=== PATIENT | female | born 1975 | race Caucasian/White ===

== ENCOUNTER 2020-08-26 10:10 | Day surgery (SDC) | payer OTHER, SELFPAY ==
--- NOTE | 2020-08-23 16:56 | PCM.HP.BLA ---
History and Physical Date of Admission: 08/26/20 HPI: The patient is a 44 year old female presenting for pre-operative visit. She is scheduled for?Laparoscopic bilateral salpingectomy and hysteroscopy w/ endometrial ablation, for?heavy menstrual bleeding and sterilization request on?08/26/2020. ??Procedure discussed along with risks, benefits and complications. ?Other alternatives discussed for management. Consent form signed??Yes.? PAST MEDICAL HISTORY PAST MEDICAL HISTORY Diagnosis Date ? Depression ? ? GERD (gastroesophageal reflux disease) ? ? Kidney stones ? ? Migraines ? ? ? PAST SURGICAL HISTORY PAST SURGICAL HISTORY Procedure Laterality Date ? BACK SURGERY HX ? ? ? 03/2020, 06/2020 ? PAST SURGICAL HISTORY OF ? PAST SURGICAL HISTORY OF ? 1999 ? colonoscopy ? PAST SURGICAL HISTORY OF ? ? ? 04/15/20; 06/23/20 ?-- 2 back surgeries ? REMOVAL GALLBLADDER ? ? ? Cholecystectomy ? REMOVAL OF TONSILS,<12 Y/O ? 1994 ? Tonsillectomy ? ? CURRENT MEDICATIONS Current Outpatient Medications Medication Sig Dispense Refill ? Zolpidem (AMBIEN CR) 12.5 mg CR tablet TAKE 1 TABLET BY MOUTH EVERY DAY AT BEDTIME NEEDED FOR SLEEP ? ? ? Norethindrone, Contraceptive, (ORTHO MICRONOR) 0.35 mg tablet Take 1 tablet by mouth once daily. 3 Package 3 ? PROPRANOLOL HCL (INDERAL XL ORAL) Take ?by mouth once daily. ? ? ? sertraline (ZOLOFT) 100 mg ORAL tablet Take 100 mg by mouth once daily. ? ? ? No current facility-administered medications for this visit. ? ALLERGIES:?Almonds [Other], Cats, and Percocet [Oxycodone-Acetaminophen] ? PERSONAL HISTORY:? SOCIAL HISTORY Social History ? Tobacco Use ? Smoking status: Never Smoker ? Smokeless tobacco: Never Used Substance Use Topics ? Alcohol use: Yes ? ? Comment: Occasionally ? Drug use: No ? FAMILY HISTORY:? FAMILY HISTORY FAMILY HISTORY Problem Relation Age of Onset ? Breast Cancer Paternal Grandmother ? ? Colon Cancer Paternal Grandfather ? ? Prostate Cancer Paternal Grandfather ? ? Allergies Father ? ? Hypertension Father ? ? Hyperlipidemia Father ? ? Allergies Brother ? ? Allergies Mother ? ? Hypertension Mother ? ? other (Endometrosis) Mother ? ? Prostate Cancer Maternal Grandfather ? ? REVIEW OF SYMPTOMS: GENERAL: denies fevers or chills ENDOCRINOLOGY: has not been on steroids Cardiology : denies palpitations or chest pain Respiratory: denies SOB or cough Hematology: denies history of prolonged bleeding or easy bruising or VTE Allergy: Denies history of personal or family history of allergy to anesthesia ? ? PHYSICAL EXAMINATION: ? VITALS:?Last menstrual period 07/27/2020. ? GENERAL:??The patient is well nourished, well hydrated in no acute distress. ?, The patient is oriented to time, place, and person. NECK:?Supple. No lynphadenopathy, normal thyroid, no thyromegaly. LUNGS:?Clear to auscultation bilaterally. no wheezes, rhonchi or rales HEART:?Regular rate and rhythm, Normal heart sounds and No murmurs or gallops ? ? IMPRESSION:?.Sterilization request, endometrial ablation w/ hysteroscopy ? PLAN:???The risks/benefits/alternatives and personal involved for the planned?laparoscopic bilateral salpingectomy with hysteroscopy and endometrial biopsy?were reviewed with the patient. Her questions were answered to her satisfaction and she desires to proceed. ?Consent was signed. ?I reviewed with her postop instructions and expectations. ? ? I have reviewed and updated past medical and surgical history, medications and allergies. This H&P was completed in my office on 08/23/2020. Procedure Criteria Procedure Type: Elective COVID Risk Discussion: The surgeon/proceduralist and patient have discussed in detail the risk of exposure to and/or potential harm posed by the COVID-19 virus with having a surgery/procedure at this time versus the risk of delaying the surgery/procedure. It is not possible to know either the risk of delaying the surgery or procedure or chance of getting an infection with perfect accuracy, but a joint decision was made between the patient and the surgeon/proceduralist to proceed at this time with the scheduled surgery/procedure as indicated on the consent form.
--- NOTE | 2020-08-26 | IMM_PTH ---
PATIENT: ROBBIE COURTNEY LOC: [facility] [place] U#:[id number] AGE/SX: 44/F ROOM: RE08/26/[address]: Dr. Cassie Miller MD : 1975 BED: DIS: 08/26/2020 SPEC #: [id number] RECD: 08/30/20 12:58 STATUS: MAGAN REQ #: [id number] COIRNE: 08/26/20 00:[address]: Cassie Miller DEPT: IMMUNOHISTOCHEMISTRY RECD BY: Wanda Lezama ENTERED: 08/30/20 12:59 SP TYPE: IMMUNO OTHR DR: Georgette Cuevas, CRYPTOGRAPHIC CENTER SPECIALIST-C Tissues: C - Vulva, NOS Procedures: p16 (initial) KI-67 (add) P53 (add) PHYSICIAN & INSTITUTION [place] [id number] SPECIMEN INFORMATION: Tissue Source: C - Vulvar biopsy Clinical Info: Sterilization; heavy menstrual bleeding Specimen Number: [id number] CPT code: 54070, 14649 x2 METHODOLOGY: Deparaffinized sections of prefer/formalin-fixed tissue or PAP/DQ stained slides are incubated with monoclonal/polyclonal antibodies/oligonucleotide probes. Localization is made via biotin free immunoperoxidase method. Appropriate controls are performed and reacted as expected. Results on target cell population are indicated in the following table: RESULTS: ANTIBODY / CLONE RESULT Block C P16 (E6H4) positive, block-like Ki-67 (30-9) positive, high P53 (DO-7) positive These tests were developed and their performance characteristics determined by [facility]. They may not have been cleared or approved by the U.S. Food and Drug Administration. The FDA has determined that such clearance or approval is not necessary. The above immunohistochemical/dualISH markers are ordered and reviewed by the Pathologist. 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 AM:paulie 08/31/20
[2020-08-26] MEDS: Celecoxib 200 MG Capsule 400 MG PO (07:00)
[2020-08-26] MEDS: Scopolamine 1mg/72hr Patch 1 PATCH TD (07:00)
[2020-08-26 10:48] LABS: Hematocrit 37.4 % (37-47); Mean Corp Hgb Conc 34.8 g/dL (32-36); Mean Corpuscular Hgb 32.2 pg (27.0-32.0); Mean Corpuscular Volume 92.6 fL (81-99); Mean Platelet Vol. 9.7 fl (6.2-12.0); Platelet Count 236 K/mm3 (150-450); RBC Distribution Width CV 13.2 % (11.6-14.6); RBC Distribution Width SD 44.1 fl (35.1-43.9); Red Blood Count 4.04 M/mm3 (4.2-5.4); White Blood Count 7.7 K/mm3 (4.4-11.0)
[2020-08-26 10:51] LABS: Internal QC Validated? YES +Cl - CLEAR BKGD; Pregnancy, Urine Negative Negative
[2020-08-26 11:00] LABS: AST(SGOT) 13 U/L (15-37); Alanine Aminotransfer ALT/SGPT 18 U/L (13-56); Albumin, Serum 3.7 g/dL (3.2-5.0); Alkaline Phosphatase 98 U/L (45-117); Globulin 3.7 g/dL (2.2-4.2); International Normalized Ratio 1.1; Partial Thromboplast Time 27.4 Seconds (24.1-36.2); Protein, Total 7.4 g/dL (6.4-8.2); Prothrombin Time (Protime)PT. 13.4 SECONDS (11.7-14.9)
[2020-08-26 11:20] VITALS: BP 126/84; PULSE 57; RESP 16; TEMP 36.8; O2SAT 98; BMI 31.3
[2020-08-26] MEDS: Acetaminophen 500 MG Tablet 1000 MG PO (11:31)
[2020-08-26] MEDS: Lactated Ringers 1,000 ML 100 ML IV (11:34)
--- NOTE | 2020-08-26 11:40 | FALS_PTH ---
PATIENT: ROBBIE COURTNEY LOC: [facility] [place] U#:[id number] AGE/SX: 44/F ROOM: RE08/26/[address]: Dr. Cassie Miller MD : 1975 BED: DIS: 08/26/2020 SPEC #: [id number] RECD: 08/26/20 13:51 STATUS: MAGAN RENiurka #: [id number] CORINE: 08/26/20 11:[address]: Cassie Miller DEPT: SURGICAL PATHOLOGY RECD BY: Patricia Augustine ENTERED: 08/27/20 08:18 SP TYPE: FALL TUBES OTHR DR: Georgette Cuevas, MARTIAL ARTS INSTRUCTOR-C Tissues: A - Fallopian tube B - Endometrium, NOS C - Vulva, NOS Procedures: Surgery Specimen Level II Surgery Specimen Level IV HEADER OPERATION: Laparoscopic salpingectomy, D & C, vulvar biopsy PRE-OP DIAGNOSIS: Sterilization; heavy menstrual bleeding TISSUE SUBMITTED: A - Bilateral fallopian tubes, B - Endometrial curettings, C - Vulvar biopsy, perineum MICROSCOPIC DIAGNOSIS A. Right and left fallopian tubes, bilateral salpingectomies: Two complete segments of fallopian tubes with no pathologic change. B. Endometrium, curettings: Scant fragments of benign superficial, inactive endometrium. Rare fragments of benign endocervix with squamous metaplasia. Scant fragments of benign superficial squamous mucosa. C. Vulva, biopsy: Vulvar intraepithelial neoplasia, HUDSON I-III. See comment. AM:paulie 08/31/20 COMMENT C. HUDSON II focally extends to the peripheral margins of excision. Results from immunohistochemistry ([id number]) for surrogate HPV marker (p16) will be reported separately. Case has been reviewed in consultation with Dr. Barbosa who concurs with the above diagnosis. IDC:SJ MICROSCOPIC DESCRIPTION Slides are reviewed. GROSS DESCRIPTION A - Received in fixative is one container labeled with the patient's name and designated bilateral fallopian tubes. The specimen consists of bilateral fallopian tubes including fimbrial ends measuring 3.5 cm in length and 0.5 cm in diameter and 7 cm in length and 0.5 cm in diameter. The fallopian tubes are not identified as right or left. Sections reveal unremarkable cut surfaces. Mercerizing Range Controller sections are submitted in two cassettes with each cassette containing one fallopian tube. B - Received in fixative is one container labeled with the patient's name and designated endometrial curettings. The specimen consists of multiple fragments of hemorrhagic soft tissue that in aggregate measure 2.5 x 2.5 x 0.2 cm. The specimen is totally submitted in one cassette. C - Received in fixative is one container labeled with the patient's name and designated vulvar biopsy. The specimen consists of a piece of hayes-white mucosal tissue measuring 2 x 1.5 x 0.2 cm. The specimen is inked and submitted entirely in one cassette. It will be sectioned at the time of embedding. / HORACIO:paulie 08/27/20 TC:0 CPT: 53800 x2, 32625 x2
[2020-08-26] MEDS: Bupivacaine Mpf 0.5% 30 ML VIAL (12:42)
[2020-08-26] MEDS: Lactated Ringers 1,000 ML 75 ML IV (13:15)
--- NOTE | 2020-08-26 13:30 | DCINST_ITS ---
Discharge Diet: No Restrictions - Increase fluid intake for the next 48 hours. Discharge Activity: Return to Normal Activity, May Drive - when you are no longer taking pain/narcotic meds., May Shower, May Take a Tub Bath - in 7 days Return to work on:: 08/30/20 May shower in (days): 1 May resume sexual activity in: 2 weeks Additional Activity Instructions:: Ambulate often the next week after surgery. Nothing in the vagina for 5 days. Call your doctor if your incision/area has: Continuous Slow Oozing, Sudden Increased Bleeding, Increased Pain/ Swelling, Increased Redness, Foul Smelling Discharge Call your doctor if you observe: Fever of 101 or Higher Cleanse incision/area with: Soap & Water, - - Your incision on your perineum can be cleaned 2-3 times a day with warm water or soaked in plain warm water Allergies/Adverse Reactions: Allergies acetaminophen [From Percocet] Allergy (Severe, Verified 08/26/20 11:19) UNKNOWN oxycodone [From Percocet] Allergy (Severe, Verified 08/26/20 11:19) UNKNOWN tree nut Allergy (Severe, Verified 08/26/20 11:19) UNKNOWN Medications to take at Discharge propranolol 120 mg capsule,24 hr,extended release 120 mg PO QHS 08/20/20 sertraline 100 mg tablet 100 mg PO BID tab 08/20/20 zolpidem 12.5 mg tablet,extended release,multiphase 12.5 mg PO QHS PRN 08/20/20 Hydrocodone/Acetaminophen [Broadlands 5-325 Tablet] 1 - 2 each PO Q8 PRN 4 Days #8 tablet 08/26/20 Ibuprofen [Motrin] 600 mg PO Q6H PRN #20 tab 08/26/20 The following prescriptions were given: Ibuprofen [Motrin] 600 mg PO Q6H PRN #20 tab PRN Reason: Pain Transmission Status: Pending to [facility]/pharmacy #[id number] Hydrocodone/Acetaminophen [[place]lands 5-325 Tablet] 1 - 2 each PO Q8 PRN 4 Days #8 tablet PRN Reason: Pain Score 6-10 Transmission Status: Received by [facility]/pharmacy #[id number] Primary Care Physician: Georgette Cuevas NP, FUEL VERIFICATION TECHNICIAN-C [Primary Care Provider] - Test Results: Test results from this visit will be discussed in further detail at your follow- up appointment, if applicable. Please Follow Up With: Cassie Miller MD - [phone] When: 7-10 days in our offie
--- NOTE | 2020-08-26 13:31 | PCM.OPRPT ---
Report of Operation Date of Procedure: 08/26/20 Pre-Operative Diagnosis: Sterilization request, menorrhagia Post-Operative Diagnosis: same + vulvar lesion Surgery/Procedure Performed:: Laparoscopic bilateral salpingectomy, hysteroscopy D&C with Niya endometrial ablation and vulvar biopsy Description of Surgical Findings:: Normal anteverted uterus, normal tubes and ovaries bilaterally, normal cervix and vagina. Vulva with raised, hypopigmented verrucous lesion of the perineal body this proximally 1.5 cm in diameter. No hyperpigmentation. No other lesions noted. powder press operator: Soraida Alvarez Type of Anesthesia:: General Anesthesiologist: Erika Crawford Special Medications: none Specimen's removed: bilateral fallopian tubes, vulvar biopsy (perineal skin) and endometrial curettings Drains: none Estimated Blood Loss (mL): 20 Fluids Replaced: 1300 cc Description of Procedure: The patient was taken to the operating room where she was prepped and draped in the dorsolithotomy position. A weighted speculum was placed in the vagina and the anterior lip of the cervix was grasped with a tenaculum. The Betzaida uterine manipulator was placed and the remainder of the instruments were removed from the vagina. Attention was turned to the abdomen. All port sites were infiltrated with 0.5% Marcaine before skin incisions were made. A 5 mm intraumbilical incision was made. The anterior abdominal wall was tented up with 2 towel clamps while a 5 mm blade less trocar and sleeve were directly inserted. Intraperitoneal placement was confirmed with the laparoscope. The pneumoperitoneum was created and the underlying abdominal contents were intact. The patient was placed in Trendelenburg. Right and left lower quadrant ports were placed under direct visualization lateral to the inferior epigastric vessels. The bowel was swept away and the above findings were noted. The LigaSure device was used to clamp seal and transect the antimesenteric portions of the right tube to the cornual insertion of the uterus. The tube was amputated from the uterus and the pedicles were all confirmed to be hemostatic. The same procedure was performed on the contralateral side. The specimens were brought out through a 5 mm port. The pedicles were again examined and found to be hemostatic. The lateral ports were removed under direct visualization and no active bleeding was noted. The pneumoperitoneum was released. The skin incisions were closed with Monocryl suture in a subcuticular fashion and skin glue. Tension was then turned to the vaginal portion of the case. The cervix was dilated serially with Hegar dilators. The 5mm hysteroscope was placed into the uterine cavity and the above findings were noted. Bilateral tubal ostia were identified. The uterus sounded to 8cm and the cervical length was 4 cm. The endometrial cavity length was 4cm. The hysteroscope was removed. A gentle sharp curettage was done of the uterine cavity. The specimen was handed off and sent to pathology. The Niya device was set to 4cm. The instrument was then seated into the endometrial cavity and the indicator was in the green. The cervical seal balloon was inflated and the uterine integrity test was passed. The ablation procedure was initiated and completed without interruption. During the ablation procedure gentle traction was held on the tenaculum and the Niya device was held up against the uterine fundus. When the ablation procedure was completed the Niya was removed. The tenaculum was removed and the tenaculum site was noted to be hemostatic. The perineal body vulvar lesion was then removed with a scalpel, an elliptical incision was made around it. It was then undermined. It was handed off and sent to pathology. This skin was reapproximated with 3-0 Vicryl suture in a subcuticular fashion. All sponge and needle counts were correct. A vaginal sweep was performed by me. The patient was awakened and taken to the recovery room in stable condition. Hysteroscopic ins: 250cc normal saline Hysteroscopic outs:200cc Findings: Endometrial cavity: Normal, no fibroids or polyps noted Cervix: Normal Vagina: Normal Start time: 12:29 PM End time: 1:19 PM Grafts/Implants Used: none - Complications none - Admit VTE Documentation VTE Present on Admission: No VTE Mechan Device Prophylaxis: SCD's VTE Pharm Prophylaxis ordered?: No Reason prophylaxis not ordered:: Procedure Not Indicated
[2020-08-26 13:34] VITALS: BP 126/84; BP 137/88; PULSE 71; RESP 16; TEMP 36.2; O2SAT 98
[2020-08-26 13:45] VITALS: BP 126/84; BP 143/95; PULSE 66; RESP 18; O2SAT 98
[2020-08-26 14:00] VITALS: BP 126/84; BP 140/100; PULSE 72; RESP 18; O2SAT 99
[2020-08-26 14:11] VITALS: BP 126/84; PULSE 63; RESP 18; TEMP 36.5; O2SAT 97
[2020-08-26 15:12] VITALS: BP 126/84; BP 132/87; PULSE 67; RESP 16; TEMP 36.6; O2SAT 100
== END 2020-08-26 15:16 | disposition home or self-care (01) ==
LOC: SDC 10:15 → AC 10:16
PROVIDERS: Anesthesiology; PCP Nurse Practitioner Primary Care; Referring Provider Obstetrics & Gynecology; Visit Provider Obstetrics & Gynecology
PROC: (CPT 58661; principal; 2020-08-26 11:25)
PROC: 0U5B8ZZ Destruction of Endometrium, Via Natural or Artificial Opening Endoscopic (ICD-10-PCS; CPT 58558; 2020-08-26 11:25)
DX: Z30.2 Encounter for sterilization (principal); N90.1 Moderate vulvar dysplasia; N85.8 Other specified noninflammatory disorders of uterus; N92.0 Excessive and frequent menstruation with regular cycle; Z20.828 Contact with and (suspected) exposure to other viral communicable diseases; F32.9 Major depressive disorder, single episode, unspecified; K21.9 Gastro-esophageal reflux disease without esophagitis; K58.9 Irritable bowel syndrome, unspecified; G43.909 Migraine, unspecified, not intractable, without status migrainosus; Z90.49 Acquired absence of other specified parts of digestive tract; Z86.2 Personal history of diseases of the blood and blood-forming organs and certain disorders involving the immune mechanism; Z79.899 Other long term (current) drug therapy
CPT/HCPCS: 00940; 58563; 58661; 36415; 80076; 81025; 85027; 85610; 85730; 87426; 88302; 88305; 88341; 88342; C9803; J7120; J2405

== ENCOUNTER → 2020-10-13 08:27 | Outpatient (CLI) | payer OTHER, SELFPAY ==
[2020-10-06 11:23] VITALS: BMI 31.1
--- NOTE | 2020-10-13 | US_ITS ---
STUDY: ULTRASOUND BREAST - RIGHT REASON FOR EXAM: Female, 44 years old. Right axillary thickness. TECHNIQUE: Axial and longitudinal images of the RIGHT breast were performed with a high resolution ultrasound transducer. # OF IMAGES: 47 COMPARISON: Comparison is made with prior mammogram done earlier today. FINDINGS: RIGHT Breast: Accessory fibroglandular tissue is seen in the right axilla. IMPRESSION: Accessory fibroglandular tissue is seen in the right axilla. ASSESSMENT CATEGORY: BIRADS Category 2: Benign. A letter regarding these results will be sent to the patient by the facility within 30 days. Electronically Signed: Sid Stokes MD at 11:04 EST , Service support , STUDY: ULTRASOUND BREAST - LEFT REASON FOR EXAM: Female, 44 years old. Right axillary fullness. TECHNIQUE: Axial and longitudinal images of the LEFT breast were performed with a high resolution ultrasound transducer. # OF IMAGES: 47 COMPARISON: Comparison is made with prior mammogram done earlier today. FINDINGS: LEFT Breast: The axillary fullness corresponds to accessory breast tissue. US/Breast Limited Unilateral IMPRESSION: Accessory breast tissue is seen in the left axillary region. ASSESSMENT CATEGORY: BIRADS Category 2: Benign. A letter regarding these results will be sent to the patient by the facility within 30 days. Electronically Signed: Sid Stokes MD at 11:06 EST , Service support ,
--- NOTE | 2020-10-13 08:57 | BI_ITS ---
MAMMOGRAPHY - BILATERAL DIAGNOSTIC REASON FOR EXAM: Female, 44 years old. Bilateral axillary evaluation. PERTINENT HISTORY: Grandmother with breast cancer. TECHNIQUE: Digital bilateral breast cristiano (3D mammographic acquisition) in the CC and MLO projections. 2-D mediolateral oblique (MLO) and craniocaudad (CC) views of both breasts were obtained. CAD: Full Field Digital Mammography with Computer Added Detection was performed. COMPARISON: None. Baseline examination. FINDINGS: Breast Composition: The breasts are heterogeneously dense, which may obscure small masses. There are no dominant masses or suspicious calcifications. Accessory breast tissue is seen in the axillary region bilaterally. Benign appearing bilateral axillary lymph nodes. No other significant abnormalities are identified. BI/DIAG MAMM W/CAD, BILAT IMPRESSION: Negative diagnostic mammogram. Correlation with ultrasound of both axillary regions is recommended for further evaluation. ASSESSMENT CATEGORY: BIRADS Category 0: Incomplete. Need additional imaging evaluation. A letter regarding these results will be sent to the patient by the facility within 30 days. Approximately 10% of breast cancers are not detected by mammography. A normal mammogram should not delay biopsy of a clinically suspicious abnormality. Electronically Signed: Sid Stokes MD at 9:48 EST , Service support ,
== END ==
PROVIDERS: PCP Nurse Practitioner Primary Care; Referring Provider Nurse Practitioner Family; Visit Provider Nurse Practitioner Family
DX: N64.4 Mastodynia (principal); N63.31 Unspecified lump in axillary tail of the right breast; N63.32 Unspecified lump in axillary tail of the left breast; R22.33 Localized swelling, mass and lump, upper limb, bilateral
CPT/HCPCS: 76642; 77062; 77066; G0279